=== PATIENT | male | born 1950 | race Caucasian/White ===

== ENCOUNTER → 2016-09-26 | Outpatient (CLI) | payer MEDICARE, OTHER | END | disposition short-term general hospital (02) | LOC: CLVASC 15:42 | DX: I73.9 Peripheral vascular disease, unspecified (principal) ==

== ENCOUNTER → 2016-11-17 | Outpatient (CLI) | payer MEDICARE, OTHER | END | disposition short-term general hospital (02) | LOC: CLCARD 09:46 → CLVASC 09:46 → CLCARD 11:42 | DX: Z48.812 Encounter for surgical aftercare following surgery on the circulatory system (principal); Z98.62 Peripheral vascular angioplasty status ==